=== PATIENT | male | born 1995 | race Hispanic/Latino ===

== ENCOUNTER 2025-01-04 12:14 | Emergency (ER) | payer OTHER ==
[2025-01-04] MEDS ORDERED: Ketorolac Tromethamine 30 MG (1 mL) VIAL ONE (12:57)
[2025-01-04] MEDS ORDERED: Cyclobenzaprine 10 MG TAB ONE (14:31)
== END 2025-01-04 14:40 | disposition home or self-care (01) ==
LOC: CSHERS 12:14
DX: S40.011A Contusion of right shoulder, initial encounter (principal); V49.40XA Driver injured in collision with unspecified motor vehicles in traffic accident, initial encounter; Y92.410 Unspecified street and highway as the place of occurrence of the external cause
CPT/HCPCS: 71045; 72125; 96372; J1885